=== PATIENT | female | born 1960 | race Caucasian/White ===

== ENCOUNTER 2020-10-07 09:07 | Emergency (ER) | payer OTHER ==
--- NOTE | 2020-10-07 09:57 | EDM.PDOC ---
ED HPI GENERAL MEDICAL PROBLEM - General Chief Complaint: General Stated Complaint: L Wrist Injury Time Seen by Provider: 10/07/20 09:49 Source of Information: Reports: Patient History Limitations: Reports: No Limitations - History of Present Illness INITIAL COMMENTS - FREE TEXT/NARRATIVE: This patient is a 60 year old female that presents to the ER. Patient reports she was getting out of her hot tub and slipped and fell. She reports landing on her left wrist/hand. Patient reports left wrist and hand pain. Patient reports that she did not hit her head, no loc. Denies other injuries. Onset Date: 10/07/20 Onset Time: 08:30 Location: Reports: Upper Extremity, Left Severity: Moderate Improves with: Reports: Movement Worsens with: Reports: Immobilization Associated Symptoms: Reports: No Other Symptoms l wrist Pain Score (Numeric/FACES): 8 - Related Data Allergies Allergy/AdvReac Type Severity Reaction Status Date / Time No Known Allergies Allergy Verified 10/07/20 10:07 Home Meds: Home Meds Simvastatin [Zocor] 20 mg PO DAILY 04/28/16 [History] Past Medical History Cardiovascular History: Reports: High Cholesterol - Past Surgical History Female Surgical History: Reports: Section Neurological Surgical History: Reports: Other (See Below) Musculoskeletal Surgical History: Reports: Other (See Below) Social & Family History - Family History Family Medical History: No Pertinent Family History - Caffeine Use Caffeine Use: Reports: Soda ED ROS GENERAL - Review of Systems Review Of Systems: See Below Constitutional: Reports: No Symptoms HEENT: Reports: No Symptoms Respiratory: Reports: No Symptoms Cardiovascular: Reports: No Symptoms Endocrine: Reports: No Symptoms GI/Abdominal: Reports: No Symptoms : Reports: No Symptoms Musculoskeletal: Reports: Hand Pain (left), Other (left wrist pain) Skin: Reports: Bruising (left hand) Neurological: Reports: No Symptoms Psychiatric: Reports: No Symptoms Hematologic/Lymphatic: Reports: No Symptoms Immunologic: Reports: No Symptoms ED EXAM, GENERAL - Physical Exam Exam: See Below Exam Limited By: No Limitations General Appearance: Alert, WD/WN, No Apparent Distress Eye Exam: Bilateral Eye: EOMI, Normal Inspection, PERRL Ears: Normal External Exam, Normal Canal, Hearing Grossly Normal, Normal TMs Ear Exam: Bilateral Ear: Auricle Normal, Canal Normal, TM normal Nose: Normal Inspection, Normal Mucosa, No Blood Throat/Mouth: Normal Inspection, Normal Lips, Normal Teeth, Normal Gums, Normal Oropharynx, Normal Voice, No Airway Compromise Head: Atraumatic, Normocephalic Neck: Normal Inspection, Supple, Non-Tender, Full Range of Motion Respiratory/Chest: No Respiratory Distress, Lungs Clear, Normal Breath Sounds, No Accessory Muscle Use Cardiovascular: Normal Peripheral Pulses, Regular Rate, Rhythm, No Edema, No Gallop, No JVD, No Murmur, No Rub Peripheral Pulses: 2+: Radial (L), Radial (R) Back Exam: Normal Inspection, Full Range of Motion. No: CVA Tenderness (L), CVA Tenderness (R), Decreased Range of Motion, Muscle Spasm, Paraspinal Tenderness, Vertebral Tenderness Extremities: Normal Range of Motion, No Pedal Edema, Normal Capillary Refill, Other (pain, tenderness, ecchymosis left hand 5th, 4th metacarpal. Wrist ular side mild tendernss. ROM intact. Neurovascular intact. Pulses +2, cap refill < 2 sec. Sensory/motor function intact. ) Neurological: Alert, Oriented, Normal Cognition, Normal Gait, No Motor/Sensory Deficits Psychiatric: Normal Affect, Normal Mood Skin Exam: Warm, Dry, Intact, No Rash, Ecchymosis (left hand) ED GENERAL MEDICAL PROCEDURES - Splinting Left Upper Extremity Splint Site: left hand/wrist Pre-procedure NV status: Normal Post-procedure NV status: Normal Splint Material: Fiberglass Splint Design: Volar Applied & Form Fitted By: Provider Provider Post-Splint Application NV Check: NV Status Normal, Good Position Complications: No Course - Vital Signs Last Recorded V/S: Last Vital Signs Temp 97.0 F 10/07/20 09:59 Pulse 79 10/07/20 09:59 Resp 16 10/07/20 09:59 BP 141/87 H 10/07/20 09:59 Pulse Ox 98 10/07/20 09:59 - Orders/Labs/Meds Orders: Active Orders 24 hr Category Date Time Status Hand Comp Min 3V Lt [CR] Stat Exams 10/07/20 09:32 Taken Wrist Comp Min 3V Lt [CR] Stat Exams 10/07/20 09:32 Taken - Radiology Interpretation Free Text/Narrative:: Left hand: possible acute fracture 4th metacarpal, but there also appears this may be an old fracture. Ellen wrist: No fracture, no dislocation, FB Departure - Departure Time of Disposition: 10:29 Disposition: Home, Self-Care 01 Clinical Impression: Hand contusion Qualifiers: Encounter type: initial encounter Laterality: left Qualified Code(s): S60.222A - Contusion of left hand, initial encounter Wrist sprain Qualifiers: Encounter type: initial encounter Laterality: left Qualified Code(s): S63.502A - Unspecified sprain of left wrist, initial encounter - Discharge Information *PRESCRIPTION DRUG MONITORING PROGRAM REVIEWED*: Not Applicable *COPY OF PRESCRIPTION DRUG MONITORING REPORT IN PATIENT ALEXANDER: Not Applicable Instructions: Wrist Sprain, Adult, Hand Contusion, [id number] Forms: ED Department Discharge Additional Instructions: Followup with primary care provider in 7-10 days, especially if pain continues Return to ER for worsening of condition or any emergent concerns Rest Ice Elevate Tylenol or Motrin for pain If numbness, tingling, increase pain; elevate above heart, if continues, remove dressing. Sepsis Event Note (ED) - Focused Exam Vital Signs: Vital Signs Temp Pulse Resp BP Pulse Ox 10/07/20 09:59 97.0 F 79 16 141/87 H 98 - My Orders Last 24 Hours: My Active Orders 10/07/20 09:32 Hand Comp Min 3V Lt [CR] Stat Wrist Comp Min 3V Lt [CR] Stat - Assessment/Plan Last 24 Hours: My Active Orders 10/07/20 09:32 Hand Comp Min 3V Lt [CR] Stat Wrist Comp Min 3V Lt [CR] Stat Plan: PLEASE SEE RN NOTE FOR PFSH
[2020-10-07 10:06] VITALS: BP 141/87; PULSE 79
== END 2020-10-07 11:07 | disposition home or self-care (01) ==
LOC: CC.ED 09:07
DX: S63.502A Unspecified sprain of left wrist, initial encounter (principal); S60.222A Contusion of left hand, initial encounter; E78.00 Pure hypercholesterolemia, unspecified; Z79.899 Other long term (current) drug therapy; W01.0XXA Fall on same level from slipping, tripping and stumbling without subsequent striking against object, initial encounter
CPT/HCPCS: 29125; 73110-LT; 73130-LT; 99283-25

== ENCOUNTER 2025-02-24 11:51 | Emergency (ER) | payer MEDICARE, OTHER ==
[2025-02-24 12:34] VITALS: BP 150/88
== END 2025-02-24 12:40 | disposition home or self-care (01) ==
LOC: CC.ED 11:51
DX: S01.81XA Laceration without foreign body of other part of head, initial encounter (principal); E78.00 Pure hypercholesterolemia, unspecified; Z79.899 Other long term (current) drug therapy; W01.0XXA Fall on same level from slipping, tripping and stumbling without subsequent striking against object, initial encounter
CPT/HCPCS: 12001; 99282